=== PATIENT | female | born 1990 | race Two or more races ===

== ENCOUNTER 2017-05-15 10:28 | Outpatient (CLI) | payer OTHER ==
[2017-05-15 11:11] LABS: APPEARANCE,URINE CLOUDY; BILIRUBIN,URINE NEGATIVE (NEGATIVE); COLOR,URINE YELLOW; GLUCOSE, URINE NEGATIVE (NEGATIVE); KETONES,URINE NEGATIVE (NEGATIVE); LEUKOCYTE ESTERASE,URINE MODERATE (NEGATIVE); NITRITE,URINE NEGATIVE (NEGATIVE); PROTEIN,URINE NEGATIVE (NEGATIVE); URINE SPECIFIC GRAVITY 1.016; UROBILINOGEN,URINE NEGATIVE mg/dL (<2.0)
[2017-05-15 11:28] LABS: UR PRO/CREAT RATIO RESULT 0.1 mg/mg (0.0-0.2); URINE CREATININE 227.7 mg/dL (16-327); URINE PROTEIN 12.2 mg/dL (<12)
[2017-05-15 11:33] LABS: URINE AMPHETAMINES SCREEN NEGATIVE; URINE BARBITURATES SCREEN NEGATIVE; URINE BENZODIAZEPINES SCREEN NEGATIVE; URINE COCAINE SCREEN NEGATIVE; URINE MARIJUANA (THC) SCREEN NEGATIVE; URINE METHADONE SCREEN NEGATIVE; URINE PHENCYCLIDINE SCREEN NEGATIVE
[2017-05-15 11:35] LABS: ABSOLUTE EOSINOPHILS # (AUTO) 0.5 10^3/uL (0.0-0.6); ABSOLUTE LYMPHOCYTES (AUTO) 1.2 10^3/uL (0.5-4.7); ABSOLUTE MONOCYTES (AUTO) 0.7 10^3/uL (0.1-1.4); ABSOLUTE NEUT (AUTO) 8.9 10^3/uL (1.7-8.2); BASOPHILS % (AUTO) 0.3 % (0-2); EOSINOPHILS % (AUTO) 4.7 % (0-6); HEMATOCRIT 32.3 % (36.0-47.0); HEMOGLOBIN 10.3 g/dL (12.0-15.5); LYMPHOCYTES % (AUTO) 10.9 % (13-45); MEAN CORPUSCULAR HEMOGLOBIN 21.4 pg (27.0-33.4); MEAN CORPUSCULAR HGB CONC 31.8 g/dL (32.0-36.0); MEAN CORPUSCULAR VOLUME 67 fl (80-97); MONOCYTES % (AUTO) 6.5 % (3-13); PLATELET COUNT 152 10^3/uL (150-450); RED BLOOD COUNT 4.82 10^6/uL (3.72-5.28); RED CELL DISTRIBUTION WIDTH 18.1 % (11.5-14.0); SEGMENTED NEUTROPHILS % (AUTO) 77.6 % (42-78); TOTAL CELLS COUNTED % (AUTO) 100 %; WHITE BLOOD COUNT 11.5 10^3/uL (4.0-10.5)
[2017-05-15 11:59] LABS: ALANINE AMINOTRANSFERASE 20 U/L (9-52); ALBUMIN 3.7 g/dL (3.5-5.0); ALKALINE PHOSPHATASE 118 U/L (38-126); ANION GAP 10 (5-19); ASPARTATE AMINO TRANSFERASE 20 U/L (14-36); BILIRUBIN,DIRECT 0.1 mg/dL (0.0-0.4); BILIRUBIN,TOTAL 0.3 mg/dL (0.2-1.3); BLOOD UREA NITROGEN 9 mg/dL (7-20); CALCIUM 9.4 mg/dL (8.4-10.2); CARBON DIOXIDE 22 mmol/L (22-30); CHLORIDE 106 mmol/L (98-107); GLUCOSE 80 mg/dL (75-110); LDH 508 U/L (313-618); POTASSIUM 4.4 mmol/L (3.6-5.0); TOTAL PROTEIN 6.1 g/dL (6.3-8.2); URIC ACID 5.6 mg/dL (2.5-6.2)
== END 2017-05-15 12:22 | disposition home or self-care (01) ==
LOC: LC 10:28
PROVIDERS: ATTEND Obstetrics & Gynecology
PROC: 4A1HXCZ Monitoring of Products of Conception, Cardiac Rate, External Approach (ICD-10-PCS; principal; 2017-05-15)
DX: O26.893 Other specified pregnancy related conditions, third trimester (principal); R42 Dizziness and giddiness; Z3A.38 38 weeks gestation of pregnancy
CPT/HCPCS: 36415; 59025; 80053; 80307; 81001; 82570; 83615; 84156; 84550; 85025; 94760

== ENCOUNTER 2017-05-19 05:06 | Inpatient (IN) | payer OTHER ==
[2017-05-17 12:54] LABS: APPEARANCE,URINE SLIGHTLY-CLOUDY; BILIRUBIN,URINE NEGATIVE (NEGATIVE); COLOR,URINE YELLOW; GLUCOSE, URINE NEGATIVE (NEGATIVE); KETONES,URINE NEGATIVE (NEGATIVE); LEUKOCYTE ESTERASE,URINE TRACE (NEGATIVE); NITRITE,URINE NEGATIVE (NEGATIVE); PROTEIN,URINE NEGATIVE (NEGATIVE); URINE SPECIFIC GRAVITY 1.013; UROBILINOGEN,URINE NEGATIVE mg/dL (<2.0)
[2017-05-17 13:06] LABS: URINE AMPHETAMINES SCREEN NEGATIVE; URINE BARBITURATES SCREEN NEGATIVE; URINE BENZODIAZEPINES SCREEN NEGATIVE; URINE COCAINE SCREEN NEGATIVE; URINE MARIJUANA (THC) SCREEN NEGATIVE; URINE METHADONE SCREEN NEGATIVE; URINE PHENCYCLIDINE SCREEN NEGATIVE
[2017-05-17 13:25] LABS: ABSOLUTE EOSINOPHILS # (AUTO) 0.4 10^3/uL (0.0-0.6); ABSOLUTE LYMPHOCYTES (AUTO) 1.2 10^3/uL (0.5-4.7); ABSOLUTE MONOCYTES (AUTO) 0.6 10^3/uL (0.1-1.4); ABSOLUTE NEUT (AUTO) 9.3 10^3/uL (1.7-8.2); BASOPHILS % (AUTO) 0.3 % (0-2); EOSINOPHILS % (AUTO) 3.2 % (0-6); HEMATOCRIT 32.1 % (36.0-47.0); HEMOGLOBIN 10.4 g/dL (12.0-15.5); LYMPHOCYTES % (AUTO) 10.2 % (13-45); MEAN CORPUSCULAR HEMOGLOBIN 21.5 pg (27.0-33.4); MEAN CORPUSCULAR HGB CONC 32.5 g/dL (32.0-36.0); MEAN CORPUSCULAR VOLUME 66 fl (80-97); MONOCYTES % (AUTO) 5.1 % (3-13); PLATELET COUNT 158 10^3/uL (150-450); RED BLOOD COUNT 4.85 10^6/uL (3.72-5.28); RED CELL DISTRIBUTION WIDTH 18.1 % (11.5-14.0); SEGMENTED NEUTROPHILS % (AUTO) 81.2 % (42-78); TOTAL CELLS COUNTED % (AUTO) 100 %; WHITE BLOOD COUNT 11.5 10^3/uL (4.0-10.5)
[~2017-05-19 05:06] MED LIST: CEFAZOLIN SODIUM 3 GM in DEXTROSE 5%-WATER 100 ML IV PRN; CEFAZOLIN SODIUM 3 GM in NORMAL SALINE 100 ML IV PRN; LACTATED RINGERS 1000 ML IV PRN; LIDOCAINE 0.5% INJ-PF (5 MG/ML) 50 ML SDV SUBCUT PRN; RINGERS SOLUTION,LACTATED 2,000 ML IV PRN
[2017-05-19 06:12] LABS: FREE T4 (FREE THYROXINE) 1.01 ng/dL (0.78-2.19)
[2017-05-19 06:27] LABS: THYROID STIMULATING HORMONE 1.54 uIU/mL (0.47-4.68)
[2017-05-19] MEDS ORDERED: OXYTOCIN 10 UNIT/ML VIAL ONE (07:39)
[2017-05-19] MEDS ORDERED: PROPOFOL INJ 200 MG/20 ML VIAL IV ONE (07:39)
[2017-05-19] MEDS ORDERED: EPHEDRINE SULFATE INJ 50 MG/1 ML AMPULE ONE (07:40)
[2017-05-19] MEDS ORDERED: FENTANYL CITRATE INJ/PF 100 MCG/2 ML AMPUL ONE ×2 (07:40→12:23)
[2017-05-19] MEDS ORDERED: MIDAZOLAM 2 MG/2 ML INJ ONE (07:40)
[2017-05-19] MEDS ORDERED: BUPIVACAINE HCL/DEX-WATER/PF 15 MG/2 ML AMPULE ONE (07:58)
[2017-05-19] MEDS ORDERED: LIDOCAINE 2%/EPINEPHRINE INJ 20 ML VIAL ONE (08:23)
[2017-05-19] MEDS ORDERED: DIPHENHYDRAMINE HCL 50 MG/ML VIAL IV PRN (09:02)
[2017-05-19] MEDS ORDERED: MEPERIDINE HCL/PF INJ 25 MG/1 ML DISP.SYRIN IV PRN ×2 (09:02→12:35)
[2017-05-19] MEDS ORDERED: FENTANYL CITRATE INJ/PF 100 MCG/2 ML AMPUL IV PRN ×3 (09:02)
[2017-05-19] MEDS ORDERED: PROMETHAZINE HCL INJ 25 MG/1 ML VIAL IV PRN ×2 (09:02→10:19)
[2017-05-19] MEDS ORDERED: ONDANSETRON HCL INJ/PF 4 MG/2 ML SDV IV PRN (09:02)
[2017-05-19] MEDS ORDERED: OXYCODONE-ACETAMINOPHEN 5-325 MG TABLET PO PRN (10:19)
[2017-05-19] MEDS ORDERED: ACETAMINOPHEN 100 ML IV PRN (10:19)
[2017-05-19] MEDS ORDERED: ACETAMINOPHEN 325 MG TABLET PO PRN (10:19)
[2017-05-19] MEDS ORDERED: HYDROMORPHONE HCL INJ/PF 2 MG/ML AMPULE IV PRN (10:19)
[2017-05-19] MEDS ORDERED: DIPH/PERTUSS(ACELL)/TETANUS VAC/PF 0.5 ML SYR (>=10YO) IM PRN (10:19)
[2017-05-19] MEDS ORDERED: MEASLES,MUMPS&RUBELLA VACC/PF 0.5 ML VIAL SUBCUT PRN (10:19)
[2017-05-19] MEDS ORDERED: OXYTOCIN/NORMAL SALINE 20 UNIT/1,000 ML RTUINJ IV PRN (10:19)
[2017-05-19] MEDS ORDERED: SIMETHICONE 80 MG TAB.CHEW PO PRN (10:19)
[2017-05-19] MEDS ORDERED: RINGERS SOLUTION,LACTATED 1,000 ML IV PRN (10:19)
--- NOTE | 2017-05-19 10:19 | PDOC DELIVERY SUMMARY ---
Delivery Summary - Maternal Hx : IV Hx Para: II Hx # Term Pregnancies: 2 Hx Total # of Abortions (Sponateous & Elective): 1 HANS: 05/26/17 Gestational Age: 39 Ruptured Membranes: AROM Time of Rupture: 08:49 Fluids: Clear - Delivery Labor: Not In Labor Presentation: Vertex Heart Rate Monitoring: Done Pre-Operatively Support Person Present: Yes Location: LD : Scheduled, Repeat Placenta: Within Normal Limits Delivery of Placenta Date: 05/19/17 Delivery of Placenta Time: 08:52 - Medications Type of Anesthesia:: Epidural - Assess and Care Baby 1 Female Delivery of Date: 05/19/17 Delivery of Time: 08:50 at 1 minute: 9 at 5 minutes: 9 Preprinted Number On Band: [id number] Skin to Skin: No To Nursery At: 08:56 Mode of Transport: Bassinet Infant Delivery Weight: 3,885 Infant Delivery Length: 20.5 in - Delivery Personnel House Repairer: JIM FERRIS RN: NEVILLE PAREDES RN: JORDAN RUFFIN MD: LEIF MANUEL
[2017-05-19] MEDS ORDERED: ACETAMINOPHEN 100 ML IV ONE (11:39)
[2017-05-19] MEDS ORDERED: OXYTOCIN/NORMAL SALINE 20 UNIT/1,000 ML RTUINJ ONE (12:17)
[2017-05-19 13:09] LABS: HEMATOCRIT 25.1 % (36.0-47.0); MEAN CORPUSCULAR HEMOGLOBIN 21.7 pg (27.0-33.4); MEAN CORPUSCULAR HGB CONC 32.4 g/dL (32.0-36.0); MEAN CORPUSCULAR VOLUME 67 fl (80-97); PLATELET COUNT 124 10^3/uL (150-450); RED BLOOD COUNT 3.75 10^6/uL (3.72-5.28); RED CELL DISTRIBUTION WIDTH 18.2 % (11.5-14.0); WHITE BLOOD COUNT 15.2 10^3/uL (4.0-10.5)
[2017-05-19 13:12] LABS: INTERNATIONAL RATION (INR) 1.06; PROTHROMBIN TIME 14.5 SEC (11.4-15.4)
[2017-05-19 13:13] LABS: HEMOGLOBIN 8.1 g/dL (12.0-15.5); PARTIAL THROMBOPLASTIN TIME 31.5 SEC (23.5-35.8)
[2017-05-19] MEDS ORDERED: ONDANSETRON HCL INJ/PF 4 MG/2 ML SDV ONE (13:18)
[2017-05-19] MEDS ORDERED: PHENYLEPHRINE HCL INJ/PF 10 MG/1 ML SDV ONE (13:18)
[2017-05-19] MEDS ORDERED: DEXAMETHASONE SOD PHOSPHATE INJ 4 MG/1 ML VIAL ONE (13:18)
[2017-05-19 13:40] LABS: ABSOLUTE LYMPHOCYTES# (MANUAL) 0.5 10^3/uL (0.5-4.7); ABSOLUTE MONOCYTES # (MANUAL) 0.3 10^3/uL (0.1-1.4); ABSOLUTE NEUTROPHILS# (MANUAL) 14.3 10^3/uL (1.7-8.2); BASOPHILS % (MANUAL) 0 % (0-2); EOSINOPHILS % (MANUAL) 1 % (0-6); LYMPHOCYTES % (MANUAL) 3 % (13-45); MONOCYTES % (MANUAL) 2 % (3-13); SEGMENTED NEUTROPHILS % (MAN) 94 % (42-78); TOTAL CELLS COUNTED 100
[2017-05-19 13:48] LABS: HYPOCHROMASIA SLIGHT; POLYCHROMASIA SLIGHT; TOXIC GRANULATION 2+
[2017-05-19 13:49] LABS: ANISOCYTOSIS 2+; OVALOCYTES 1+; PLATELET CLUMPS PRESENT; POIKILOCYTOSIS 1+; ROULEAUX 1+; SCHISTOCYTES SLIGHT
[2017-05-19] MEDS: DOCUSATE SODIUM 100 MG CAPSULE PO SCH (17:18)
[2017-05-19] MEDS: OXYCODONE-ACETAMINOPHEN 5-325 MG TABLET PO PRN ×2 (17:19→23:37)
--- NOTE | 2017-05-19 17:19 | Brief Operative Note ---
BRIEF OPERATIVE REPORT DATE OF SURGERY: 05/19/17 TIME OF SURGERY: 09:30 PREOPERATIVE DIAGNOSIS: Morbid Obesity, 39+0ega, Undesired Fertility, Sickle Cell Trait, H/o Blood Transfusion, GHTN, H/o Section x 2, , Keloid Scar POSTOPERATIVE DIAGNOSIS: [place] - delivered SURGEON: LEIF MANUEL FINDINGS: VFI delivered at 0850, Weight 3885gm, Apgars 9/9, dense scar tissue from aterior uterine body to fascia. Filschie clip x 2 placed on bilateral tubes, EBL 600ml, QBL not done per OR team. IVF 1400ml, 200ml UOP, Clear amniotic fluid. COMPLICATIONS: None ESTIMATED BLOOD LOSS: 600ml TISSUE REMOVED OR ALTERED: placenta and cord not sent to pathology TECHNICAL PROCEDURE: Repeat LTCS with BTL, Scar Revision
[2017-05-19] MEDS: KETOROLAC TROMETHAMINE INJ/PF 30 MG/1 ML SDV IV SCH (17:20)
[2017-05-19] MEDS ORDERED: PSEUDOEPHEDRINE HCL 30 MG TABLET PO PRN (17:29)
[2017-05-19] MEDS ORDERED: OXYMETAZOLINE HCL 0.05% NASAL SPRAY 15 ML BOTTLE NASL PRN (17:29)
[2017-05-20] MEDS: KETOROLAC TROMETHAMINE INJ/PF 30 MG/1 ML SDV IV SCH (01:41)
[2017-05-20 07:33] LABS: HEMATOCRIT 20.6 % (36.0-47.0); MEAN CORPUSCULAR HEMOGLOBIN 22.1 pg (27.0-33.4); MEAN CORPUSCULAR HGB CONC 33.3 g/dL (32.0-36.0); MEAN CORPUSCULAR VOLUME 66 fl (80-97); PLATELET COUNT 118 10^3/uL (150-450); RED CELL DISTRIBUTION WIDTH 18.2 % (11.5-14.0); WHITE BLOOD COUNT 10.4 10^3/uL (4.0-10.5)
[2017-05-20 07:45] LABS: HEMOGLOBIN 6.9 g/dL (12.0-15.5)
[2017-05-20] MEDS: DOCUSATE SODIUM 100 MG CAPSULE PO SCH ×2 (09:35→17:11)
[2017-05-20] MEDS: OXYCODONE-ACETAMINOPHEN 5-325 MG TABLET PO PRN ×3 (09:36→21:50)
[2017-05-20] MEDS ORDERED: PRENATAL VITAMIN W DHA CAPSULE PO SCH (10:00)
--- NOTE | 2017-05-20 10:17 | PDOC PROGRESS REPORT ---
Subjective-OB Progress Note for:: 05/20/17 Subjective: Day 1 s/p Denies concerns, voiding without difficulty, lochia is stable, pain well controlled. Physical Exam (OB) Vital Signs: Temp Pulse Resp BP Pulse Ox 98.0 F 101 H 16 127/77 H 100 05/20/17 07:40 05/20/17 07:40 05/20/17 07:40 05/20/17 07:40 05/20/17 07:40 Intake & Output 05/19/17 05/20/17 05/21/17 06:59 06:59 06:59 Intake Total 2000 Output Total 1550 Balance 450 Weight 124.5 kg - PIH/Pre-Eclampsia DTR's: 1 + Clonus: Negative Headache: Absent Epigastric Pain: No Visual Changes: No - Dressing Removed: No Incision: Well Approximated Closure Type: Surgical Glue - Bilateral Tubal Ligation Dressing Removed: No - open to air Site: Well Approximated - Lochia Lochia Amount: Scant < 10 ml Lochia Color: Rubra/Red - Abdomen Description: Soft, Round Hernia Present: No Fundal Description: Firm, Midline Fundal Height: u/u - u/2 Objective-Diagnostic Laboratory: 05/20/17 07:00 05/19/17 05/20/17 12:50 07:00 WBC 15.2 H 10.4 RBC 3.75 3.10 L Hgb 8.1 L D 6.9 L Hct 25.1 L 20.6 L MCV 67 L 66 L MCH 21.7 L 22.1 L MCHC 32.4 33.3 RDW 18.2 H 18.2 H Plt Count 124 L 118 L Seg Neutrophils % Not Reportable Lymphocytes % Not Reportable Monocytes % Not Reportable Eosinophils % Not Reportable Basophils % Not Reportable Absolute Neutrophils Not Reportable Absolute Lymphocytes Not Reportable Absolute Monocytes Not Reportable Absolute Eosinophils Not Reportable Absolute Basophils Not Reportable Assessment and Plan(PN) - Assessment and Plan (1) Anemia Qualifiers: Anemia type: unspecified type Qualified Code(s): D64.9 - Anemia, unspecified Is this a current diagnosis for this admission?: Yes Plan: ferrous sulfate increase dietary iron (2) Sterilization Is this a current diagnosis for this admission?: Yes (3) delivery delivered Is this a current diagnosis for this admission?: Yes Plan: routine post op care - Time Spent with Patient Time with patient: Less than 15 minutes Critical Time spent with patient: Less than 15 minutes Medications reviewed and adjusted accordingly: Yes - Disposition Anticipated Discharge: Home Within: within 24 hours
[2017-05-20] MEDS: IBUPROFEN 800 MG TABLET PO SCH ×3 (11:16→23:32)
[2017-05-21] MEDS: IBUPROFEN 800 MG TABLET PO SCH (06:12)
--- NOTE | 2017-05-21 08:39 | PDOC DISCHARGE SUMMARY ---
Final Diagnosis Discharge Date: 05/21/17 - Final Diagnosis (1) Anemia Is this a current diagnosis for this admission?: Yes (2) Sterilization Is this a current diagnosis for this admission?: Yes (3) delivery delivered Is this a current diagnosis for this admission?: Yes Discharge Data - Discharge Medication Prescriptions: Oxycodone HCl/Acetaminophen [Percocet 5-325 mg Tablet] 2 tab PO Q4HP PRN #30 tablet PRN Reason: Docusate Sodium [Colace 100 mg Capsule] 100 mg PO BID #60 capsule Ferrous Sulfate [Iron] 325 mg PO DAILY #60 tablet Ibuprofen [Motrin 800 mg Tablet] 800 mg PO Q6 #60 tablet Home Medications: Docusate Sodium [Colace 100 mg Capsule] 100 mg PO BID #60 capsule 05/21/17 Ferrous Sulfate [Iron] 325 mg PO DAILY #60 tablet 05/21/17 Ibuprofen [Motrin 800 mg Tablet] 800 mg PO Q6 #60 tablet 05/21/17 Oxycodone HCl/Acetaminophen [Percocet 5-325 mg Tablet] 2 tab PO Q4HP PRN #30 tablet 05/21/17 Gestational Age: 39 Reason(s) for Admission: Ceasarean Section-Repeat, Tubal Ligation Procedures: NST Intrapartum Procedure(s): : Low Cervical, Transverse, Tubal Ligation - [place] Data Baby 1 Female at 1 minute: 9 at 5 minutes: 9 Weight: 3885 kg Home with Mother: Yes Complications: No - Diagnosis Test Laboratory: Temp Pulse Resp BP Pulse Ox 97.9 F 96 18 129/69 H 99 05/21/17 04:00 05/21/17 04:00 05/21/17 04:00 05/21/17 04:00 05/21/17 04:00 05/17/17 05/17/17 05/19/17 11:20 11:23 12:50 RBC 4.85 3.75 Hgb 10.4 L 8.1 L D Hct 32.1 L 25.1 L Urine Opiates Screen NEGATIVE 05/20/17 07:00 RBC 3.10 L Hgb 6.9 L Hct 20.6 L Urine Opiates Screen - Discharge information/Instructions Discharge Activity: Activity As Tolerated, No Driving, No Lifting Over 10 Pounds , Pelvic Rest, Slowly Increase Activity, No tub bath Discharge Diet: Regular Disposition: HOME, SELF-CARE Follow up with: [facility] in: 1, Weeks
[2017-05-21 09:54] VITALS: BP 129/69
--- NOTE | 2017-06-07 12:02 | Operative Report ---
Operative Report DATE OF SURGERY: 05/19/17 PREOPERATIVE DIAGNOSIS: Morbid Obesity, 39+0ega, Undesired Fertility, Sickle Cell Trait, H/o Blood Transfusion, GHTN, H/o Section x 2, , Keloid Scar POSTOPERATIVE DIAGNOSIS: [place] - delivered OPERATION: Repeat LTCS with BTL, Scar Revision SURGEON: LEIF MANUEL ANESTHESIA: Epidural TISSUE REMOVED OR ALTERED: placenta and cord not sent to pathology ESTIMATED BLOOD LOSS: 600ml INTRAOPERATIVE FINDINGS: VFI delivered at 0850, Weight 3885gm, Apgars 9/9, dense scar tissue from aterior uterine body to fascia. Filschie clip x 2 placed on bilateral tubes, EBL 600ml, QBL not done per OR team. IVF 1400ml, 200ml UOP, Clear amniotic fluid. PROCEDURE: Scrap Preparer:[None] Anesthesia: Epidural Anesthesia provider: [Swati Hartman CRNA, MD] Urine output: [200ml] IV fluids: [1400ml] Indications: [26yo at 30+0 ega with history of prior section times 2 desires Repeat LTCS. She is 100% sure that she has completed childbearing and desires tubal sterilization. complicated by Morbid obesity with BMI 44.5 and Sickle Cell Trait and Gestational HTN.] Procedure: The patient was taken to the operating room where spinal anesthesia was obtained and found to be inadequate therefore epidural was placed. She was then prepped and draped in the normal sterile fashion and placed in the dorsal supine position with a leftward tilt. A Pfannenstiel skin incision was then made and carried through to the underlying layers of the fascia with the scalpel after excising the prior pfannensteil incision in an elliptical fashion. The fascia was incised in the midline and the incision extended laterally with the Hoffman scissors. The superior aspect of the fascial incision was then grasped with Sajan clamps elevated and the underlying rectus muscles dissected off [bluntly]. Attention was then turned to the inferior aspect of the fascial incision which in a similar fashion was grasped, tented up with Tamanna clamps, and the rectus muscles dissected off [bluntly]. The rectus muscles were then in the midline with sharp and blunt dissection due to dense scar from anterior uterine body to overlying rectus muscles and abdominal wall. The peritoneal incision was then extended superiorly and inferiorly with good visualization of the bladder. The bladder blade was inserted and the vesicouterine peritoneum identified grasped with Dominican pickups and entered sharply with the Metzenbaum scissors. This incision was then extended laterally with the Metzenbaum scissors and a bladder flap created digitally. The bladder blade was then reinserted and the lower uterine segment incised in a transverse fashion with the scalpel. The uterine incision was then extended bluntly. The bladder blade was removed and the 's head was delivered from cephalic presentation atraumatically. The nose and mouth were suctioned and the cord doubly clamped and cut. And the infant was handed off to waiting pediatricians. The placenta was then delivered spontaneously and the uterus exteriorized and cleared of all clots and debris. The uterine incision was then repaired with 1- 0 Vicryl in a running locked fashion. A second layer of the same suture was used to obtain hemostasis via imbrication of the initial layer. The bladder flap was then repaired with 3-0 chromic in a running fashion. The left fallopian tube was identified and Filschie clip times 2 was placed in the ampullary portion. This procedure was repeated on the right thus completing bilateral tubal ligation. The uterus was returned to the patient's abdomen and Interceed was placed overlying the uterine incision to prevent adhesions. The gutters were cleared of all clots and debris. All operative sites were noted to be hemostatic. The fascia was reapproximated with 0 Vicryl in a running fashion from each lateral edge to the midline. The skin was closed with 3-0 Monocryl in a running subcuticular fashion with overlying Dermabond for additional dressing as well as wound closure. The patient tolerated the procedure well. Sponge lap needle and instrument counts are correct times 2. 3 g of Ancef were given prior to skin incision. The patient was taken to the recovery area awake and in stable condition.
== END 2017-05-21 11:05 | disposition home or self-care (01) | DRG 765 ==
LOC: 2S 05:06
PROVIDERS: ADMIT Student in an Organized Health Care Education/Training Program; ATTEND Student in an Organized Health Care Education/Training Program
PROC: 0UL70CZ Occlusion of Bilateral Fallopian Tubes with Extraluminal Device, Open Approach (ICD-10-PCS; 2017-05-19)
PROC: 4A1HXCZ Monitoring of Products of Conception, Cardiac Rate, External Approach (ICD-10-PCS; 2017-05-19)
PROC: 10D00Z1 Extraction of Products of Conception, Low, Open Approach (ICD-10-PCS; principal; 2017-05-19 07:45)
DX: O34.211 Maternal care for low transverse scar from previous cesarean delivery (principal); Z68.42 Body mass index [BMI] 45.0-49.9, adult; E66.01 Morbid (severe) obesity due to excess calories; O99.02 Anemia complicating childbirth; O99.214 Obesity complicating childbirth; D57.3 Sickle-cell trait; Z30.2 Encounter for sterilization; Z3A.39 39 weeks gestation of pregnancy; Z37.0 Single live birth
CPT/HCPCS: 1961; 36415; 59025; 80307; 81001; 84439; 84443; 85025; 85027; 85362; 85610; 85730; 86850; 86900; 86901; 90715; 94799; C1765; J0131; J0690; J1100; J1885; J2250; J2370; J2405; J2590; J2704; J3010; J3490; J7120